=== PATIENT | female | born 2000 | race Caucasian/White ===

== ENCOUNTER 2020-04-05 14:02 | Outpatient (CLI) | payer BC, SELFPAY ==
[2020-04-05 14:15] LABS: Basophils Percent Auto 0.7 % (0.2-1.2); Eosinophils Absolute Auto 0.1 K/mm3 (0-0.3); Eosinophils Percent Auto 1.8 % (0-4.4); Hematocrit 47.2 % (37.0-47.0); Hemoglobin 16.4 g/dL (12.0-15.0); Immature Granulocyte Absolute 0.03 K/mm3 (0.00-0.031); Immature Granulocyte Percent A 0.5 % (0-0.5); Lymphocytes Absolute Auto 2.35 K/mm3 (0.9-3.2); Lymphocytes Percent Auto 38.8 % (18.3-44.2); Mean Corpuscular HGB Conc 34.7 g/dl (32-36); Mean Corpuscular Hemoglobin 30.7 pg (26-34); Mean Corpuscular Volume 88.2 fl (80-100); Mean Platelet Volume 9.5 fl (7.4-10.4); Monocytes Absolute Auto 0.4 K/mm3 (0.1-0.6); Monocytes Percent Auto 6.4 % (2.6-8.5); Neutrophils Absolute Auto 3.1 K/mm3 (1.3-6.7); Neutrophils Percent Auto 51.8 % (45.5-73.1); Platelet Count Result 192 k/mm3 (150-375); Red Blood Count 5.35 M/mm3 (4.2-5.4); White Blood Count 6.1 K/mm3 (4.5-10.0)
== END 2020-04-05 14:03 | disposition home or self-care (01) ==
LOC: ANHLAB 14:04
PROVIDERS: Visit Provider Internal Medicine Hematology & Oncology
DX: F64.9 Gender identity disorder, unspecified (principal)
CPT/HCPCS: 36415; 85025

== ENCOUNTER 2022-02-11 13:02 | Outpatient (CLI) | payer BC, SELFPAY ==
--- NOTE | ~2022-02-11 | NM_ITS ---
EXAMINATION: NM hepatobiliary w pharm DATE: 02/11/2022 15:50 INDICATION: Right upper quadrant abdominal pain. COMPARISON: CT abdomen and pelvis dated 05/13/2019 TECHNIQUE: 6.0 mCi Tc-99m mebrofenin (Choletec) was administered intravenously. Scintigraphic images of the abdomen were obtained for one hour. 1.6 mcg sincalide (Kinevac) was administered by slow intr avenous infusion, and imaging was continued for 30 minutes. Gallbladder ejection fraction was calcula kaela by the technologist. FINDINGS: There is normal clearance of radiotracer from the blood pool. Photopenic defect over the dome of the liver with location and configuration suggesting the secondary to an overlying breast implant. There is homogeneous tracer uptake by the liver. Activity progresses to the gallbladder and bowel. The gal lbladder ejection fraction (GBEF) is 7% (normal 10-90%, but most patient with gallbladder dysfunction have GBEF < 35% which does overlap with the normal range). IMPRESSION: 1. Significantly decreased gallbladder ejection fraction of 7% consistent with gallbladder dysfuncti on or chronic cholecystitis in the appropriate clinical setting. Reviewed, dictated and finalized at location B. IMPRESSION: 1. Significantly decreased gallbladder ejection fraction of 7% consistent with gallbladder dysfunction or chronic cholecystitis in the appropriate clinical s etting.
== END 2022-02-11 13:03 | disposition home or self-care (01) ==
LOC: CHSIMG 13:03
PROVIDERS: PCP Nurse Practitioner Family; Visit Provider Nurse Practitioner Family
DX: R10.11 Right upper quadrant pain (principal)
CPT/HCPCS: 78227; A9537; J2805

== ENCOUNTER → 2022-02-27 13:40 | Outpatient (CLI) | payer BC, SELFPAY ==
--- NOTE | ~2022-02-27 | US_ITS ---
US abdomen limited INDICATION: Abnormal HIDA scan. PROCEDURE: Realtime right upper abdominal ultrasound. COMPARISON: No prior studies for comparison. FINDINGS: The pancreas is normal without focal mass or pancreatic ductal dilation. Liver echotexture is normal without focal mass or intrahepatic biliary dilatation. There is normal directional flow i n the portal vein. The gallbladder is normal without stones, gallbladder wall thickening or pericholecystic fluid. Comm on bile duct measures 6 mm. No sonographic Joseph's sign. IMPRESSION: 1: Normal limited abdominal ultrasound. Reviewed, dictated and finalized at location A.
== END ==
PROVIDERS: PCP Surgery; Visit Provider Surgery
DX: K82.8 Other specified diseases of gallbladder (principal)
CPT/HCPCS: 76705

== ENCOUNTER 2022-03-12 00:18 | Day surgery (SDC) | payer BC, SELFPAY ==
[2022-03-07 11:00] VITALS: BMI 32.3
--- NOTE | 2022-03-07 11:48 | PC.NURSE ---
Report to the Outpatient Waiting Room, entrance under the green pavilion located off [facility], at time 10:30 on date 03/12/22. OR Time: 12:30. - You and your visitor will be asked a series of questions to screen for COVID 19 for your protection. - Only one visitor is allowed at this time. - The patient visitor is requested to leave or wait in car when not with patient. - A mask is required within the hospital. Patients may have clear liquids (water, carbonated beverages, clear teas, apple juice) until 3 hours prior to surgery (9:30) with a maximum of 20 ounces. - No food from midnight until time of surgery Take the following medications with a SIP of water the morning of surgery: BUSPIRONE, VENLAFAXINE Medications to discontinue per physician: N/A Date to take last dose: N/A Please no make-up, nail maori, hairspray, perfume, deodorant, or body powder the day of surgery. No jewelry (including any body piercings) or valuables the day of surgery, leave them at home. Please take a shower or bath the night before, or the morning of, surgery with an antibacterial soap. Wear comfortable, loose fitting clothing. HIBICLENS SHOWER - Jewelry must be removed prior to entering the operating room. Rings and piercings that are not removed may be cut off. - The hospital will not accept responsibility for valuables. - Please leave all valuables, including medications, at home the day of surgery. If you are going home after surgery, a licensed passenger coach driver must drive you home. - NO public transportation without another adult. - We recommend that an adult stay with you for 24 hours following discharge. - We also recommend that you do not drive, make important decision, drink alcoholic beverages, or take any drugs that were not prescribed by your health care provider for at least 24 hours after your discharge time. Follow any additional instructions given to you from your surgeon. If you or anyone in your household have experienced Covid symptoms in the past week, please notify your surgeon or the nurse liaison at the phone number below for possible testing. Telephone instructions given to PT - MARY LOU OWENS and asked if any additional questions and then verbalized understanding. Patient advised to call surgeon office or pre surgery nurse liaison [phone] if any additional questions.
[2022-03-12] VITALS (9 sets, daily range): BP systolic 116–136; BP diastolic 54–88; PULSE 50–99; RESP 9–23; TEMP 35.9–36.4; O2SAT 98–100
--- NOTE | 2022-03-12 10:04 | WPDANESEPPF ---
Anes - Initial Pre Proc Eval Procedure: Operation Date: 03/12/22 12:30 Proposed Procedures p Laparoscopic Cholecystectomy, Possible Open - Elias Braga DO Date/Time: 03/12/22 10:04 Surgeon: Elias Braga DO Pre Op Diagnosis: Biliary Dyskinesia Patient Data Age: 21 Gender: F Height: 1.63 m Weight: 85.28 kg Allergies Allergy/AdvReac Type Severity Reaction Status Date / Time No Known Allergies Allergy Verified 03/07/22 10:58 Home Medications Medication Instructions Recorded Confirmed Type fluticasone propionate 50 See Rx Instructions .Route 09/28/21 03/07/22 Rx mcg/actuation nasal .COMPLEX #16 mL spray,suspension venlafaxine 75 mg capsule,extended See Rx Instructions .Route 11/15/21 03/07/22 Rx release 24 hr .COMPLEX #30 caps quetiapine 25 mg tablet (Seroquel) 25 mg PO QHS #90 tabs 01/14/22 03/07/22 Rx testosterone cypionate 200 mg/mL 200 mg subcut .COMPLEX 02/05/22 03/07/22 History intramuscular oil omeprazole 20 mg capsule,delayed See Rx Instructions .Route 03/01/22 03/07/22 Rx release .COMPLEX #90 caps buspirone 15 mg tablet 15 mg PO BID 90 days #180 tabs 03/07/22 03/07/22 Rx pseudoephedrine HCl 60 mg tablet 60 mg PO Q4-6H PRN Congestion 03/07/22 03/07/22 History Patient hx anesthesia problems: none Family hx anesthesia problems: none Results Review: All pre-operative results and documents have been reviewed as part of the pre-operative evaluation. [facility] Past Medical History Medical History Anxiety Arthritis Constipation Depression Diarrhea Flat foot [pes planus] (acquired), left foot (02/11/19) Headache Maxillary sinusitis Nausea & vomiting Nicotine dependence Pain, foot, left, chronic Shortness of breath (01/27/19) Stomach pain Suicide attempt Syncope Surgical History Surgical History Coalition, talocalcaneal (02/11/19) No history of previous surgery Family History Family History Mother Hypertension Father Healthy adult Other Diabetes mellitus Family history of arthritis Family history of neuropathy Social History Social History Years smoked: 5 Smoking status: Current every day smoker Tobacco type: e-cigarettes/vaping Additional smoking assessment comments: Smokes 1-5 cigarettes per week Alcohol intake: current Alcohol use details: EVERY OTHER MONTH Substance use: current Substance use type: marijuana Additional living arrangements comments: Single. No children. Additional occupation/education comments: Works at [employer] Gender identity (if verbalized by the patient): Male Spiritual care concerns: No Anes - Eval Final PreProcedure Day of Procedure 03/12/22 10:04 Patient weight: obese Heart: regular rate and rhythm Lungs: decreased breath sounds Airway: Mallampati scale class 1 Neurological: alert and oriented Last oral intake: >/= 8 hours ASA classification: III Emergent: no Anesthetic plan: proceed Anesthesia type and monitoring: general ETT and standard monitoring Results Review: All pre-operative results and documents have been reviewed as part of the pre-operative evaluation. Informed Consent: The patient's anesthetic plan and its attendant risks and benefits were discussed with the patient/family/POA. Questions were solicited and answers provided to the satisfaction of the patient/family/POA.
[2022-03-12] MEDS: ACETAMINOPHEN 500 MG TABLET 1000 MG PO (10:48)
[2022-03-12] MEDS: KETOROLAC 15 MG/ML VIAL (*BKC) IV PUSH (10:52)
[2022-03-12] MEDS: LACTATED RINGERS 1,000 ML 30 ML IV CONT ×2 (11:20→13:21)
--- NOTE | 2022-03-12 11:52 | WPDHPUPDATE1 ---
History and Physical Update Update Date/Time: 03/12/22 11:52 History and Physical has been reviewed, including an updated exam of the patient. There are NO changes in the patient's condition. Risks, benefits, and alternatives have been discussed and questions answered. Patient agrees to proceed with procedure.
[2022-03-12 11:53] LABS: Amylase 55 U/L (30-110)
[2022-03-12 12:02] LABS: Alanine Aminotransferase 26 U/L (6-35); Albumin Level 4.6 g/dL (3.5-5.1); Alkaline Phosphatase 69 U/L (38-126); Aspartate Amino Transferase 34 U/L (14-36); Bilirubin,Total 0.6 mg/dL (0.2-1.3); Lipase 118 U/L (23-300)
[2022-03-12] MEDS: ceFAZolin 2 GM/D5W 50 ML 2 GM/50 ML BAG IVPB (12:11)
[2022-03-12] MEDS: BUPIVACAINE/EPINEPHRINE 0.25% 50 ML VIAL 30 ML INFILTRATE (12:16)
--- NOTE | 2022-03-12 13:10 | W.PM.PROC2 ---
Procedure Note - Detailed Date of Procedure 03/12/22 Pre-op Diagnosis Biliary Dyskinesia Post-op Diagnosis Same Procedure Performed Laparoscopic Cholecystectomy Surgeon Elias Braga, DO Anesthesia General and Local (0.5% bupivacaine) Indications This is a 21-year-old who presents with right upper quadrant pain for the past 2 months. He was noting some diarrhea and right upper quadrant pain. Pain was not associated with any particular foods, but eating did occasionally make the pain worse. An outside facility CT was normal. HIDA scan showed decreased gallbladder ejection fraction at 7%. A right upper quadrant ultrasound was also obtained and this showed normal appearance of the gallbladder without gallstones. Liver enzymes were also normal preoperatively. Discussions were made with the patient about treatment options and decision was made to proceed with laparoscopic cholecystectomy, possible open. Findings Laparoscopic cholecystectomy was performed. The gallbladder appeared grossly normal and cystic duct appeared normal in size. No other intra-abdominal abnormalities were noted. Sheath the gallbladder was removed and sent to the lab for pathology. Description of Procedure Procedure as well as risks, benefits, and alternatives were discussed with patient. Written consent was obtained and placed in chart prior to procedure. The patient was brought back to surgical suite. Patient was placed in supine position on operating table. Time-out was done to confirm patient and procedure. Patient was then intubated by the anesthesia department. Abdomen was prepped and draped in sterile fashion using chlorhexidine prep. 0.5% bupivacaine with epinephrine was infiltrated at each site of incision. A 5 millimeter incision was made near the umbilicus, and a 5 millimeter Optiview trocar was advanced through the abdominal layers under direct visualization. Once inside the abdominal cavity, carbon dioxide was insufflated to create a pneumoperitoneum. The camera was inserted and the abdomen was inspected. No immediate abnormalities were identified. The patient was placed in reverse Trendelenburg position and rotated slightly to the left. An 11 millimeter incision was made in the subxiphoid region, and an 11 millimeter trocar was inserted under direct visualization. Two 5 millimeter incisions were made in the right upper quadrant, and two 5 millimeter trocars were inserted under direct visualization. The gallbladder was identified and grasped at the fundus and retracted superiorly. It was then grasped at the infundibulum retracted laterally. Careful dissection around the neck of the gallbladder was performed using blunt dissection with a [place] grasper and hook electrocautery. The cystic duct was identified, and a window was created behind it. The cystic artery was also identified and a window was created behind it. The critical view of safety was identified, visualizing the cystic duct running directly into the neck of the gallbladder, and the cystic artery running directly into the wall of the gallbladder. A 5 millimeter clip learning disabilities specialist was then used to place 2 clips proximally and 1 clip distally on both the cystic duct and cystic artery. They were then both transected using endoscopic scissors. Once safely away from the elana hepatitis, the gallbladder was dissected free from the liver bed using hook electrocautery. Hemostasis was achieved along the way. The gallbladder was removed completely and then removed through the subxiphoid port. The liver bed was then inspected. Hemostasis appeared adequate, and our clips appeared secure. The area was gently irrigated with sterile saline. No other abnormalities were seen. The patient was flattened out in bed, and 1 final inspection was made around the abdominal cavity. The subxiphoid port was removed, and a Marco Judith cone was used to approximate the fascia with an 0-Vicryl simple interrupted suture. The
[2022-03-12] MEDS: ONDANSETRON INJ 4 MG/2 ML VIAL IV PUSH (14:07)
[2022-03-12] MEDS: oxyCODONE HCL (*CRX) 5 MG TAB IR PO (14:56)
== END 2022-03-12 15:20 | disposition home or self-care (01) ==
PROVIDERS: PCP Nurse Practitioner Family; Visit Provider Surgery
PROC: 0FT44ZZ Resection of Gallbladder, Percutaneous Endoscopic Approach (ICD-10-PCS; CPT 47562; principal; 2022-03-12 12:30)
DX: K81.1 Chronic cholecystitis (principal); R19.7 Diarrhea, unspecified; R10.11 Right upper quadrant pain; F41.9 Anxiety disorder, unspecified; M19.90 Unspecified osteoarthritis, unspecified site; F32.A Depression, unspecified; F12.90 Cannabis use, unspecified, uncomplicated; F17.210 Nicotine dependence, cigarettes, uncomplicated; M21.40 Flat foot [pes planus] (acquired), unspecified foot; F17.290 Nicotine dependence, other tobacco product, uncomplicated
CPT/HCPCS: 47562; 36415; 80076; 82150; 83690; 86850; 86900; 86901; 88304; A9270; J0690; J1100; J1885; J2250; J2405; J2704; J2710; J3010; J7030; J7120

== ENCOUNTER 2023-11-22 11:40 | Emergency (ER) | payer BC, SELFPAY ==
[2023-11-22 12:00] VITALS: BP 127/78; PULSE 105; RESP 18; TEMP 37.3; O2SAT 99
--- NOTE | 2023-11-22 12:56 | ED.URI ---
HPI - URI/Sore Throat General Chief Complaint: Upper Respiratory Infection Stated Complaint: sorethroat Time Seen by Provider: 11/22/23 12:52 Source: patient, RN notes reviewed and old records reviewed Mode of arrival: ambulatory Limitations: no limitations History of Present Illness HPI Narrative: 23-year-old male presents to the [facility] with his mother with complaints of sore throat, fevers as high as 101.3, headache, right ear pain, sinus pain and pressure as well as body aches. Related Data Home Medications Medication Instructions Recorded Confirmed testosterone cypionate 200 mg/mL 200 mg subcut .COMPLEX 02/05/22 11/22/23 intramuscular oil Allergies Allergy/AdvReac Type Severity Reaction Status Date / Time No Known Allergies Allergy Verified 11/22/23 12:17 Review of Systems Review of Systems: All systems reviewed & are unremarkable except as noted in HPI and below Constitutional: Constitutional: Reports no additional constitutional complaints Eyes: Eyes: Reports no additional eye complaints ENT: Reports as per HPI and Reports sore throat Cardiovascular: Cardiovascular: Reports no additional cardiovascular complaints, Denies chest pain and Denies dyspnea Respiratory: Respiratory: Reports no additional respiratory complaints, Denies chest congestion, Denies cough and Denies dyspnea Gastrointestinal: Gastrointestinal: Reports no additional gastrointestinal complaints, Denies abdominal pain, Denies nausea and Denies vomiting Musculoskeletal: Musculoskeletal: Reports no additional musculoskeletal complaints Integumentary/Breasts: Skin/Breast: Reports system reviewed and no additional complaints, except as docu Neurologic: Reports system reviewed and no additional complaints, except as documented Psychiatric: Psychiatric: Reports no additional psychiatric complaints Allergic/Immunologic: Allergic/Immunologic: Reports no additional allergic/immunologic complaints [facility] Past Medical History Medical History Anxiety Arthritis Constipation Depression Diarrhea Flat foot [pes planus] (acquired), left foot (02/11/19) Headache Maxillary sinusitis Nausea & vomiting Nicotine dependence Pain, foot, left, chronic Shortness of breath (01/27/19) Stomach pain Suicide attempt Syncope Surgical History Surgical History Coalition, talocalcaneal (02/11/19) Hx laparoscopic cholecystectomy 03/12/22 No history of previous surgery Family History Family History Mother Hypertension Father Healthy adult Other Diabetes mellitus Family history of arthritis Family history of neuropathy Social History Social History Years smoked: 5 Smoking status: Current every day smoker Tobacco type: e-cigarettes/vaping Additional smoking assessment comments: Smokes 1-5 cigarettes per week Alcohol intake: current Alcohol use details: EVERY OTHER MONTH Substance use: current Substance use type: marijuana Living arrangements: with family Additional living arrangements comments: Single. No children. Occupation/Education: occupation Additional occupation/education comments: Works at [employer] Gender identity (if verbalized by the patient): Male Spiritual care concerns: No Comments At the time of my signature, I reviewed and agree with the nursing past medical, surgical, social, and family history. There is no relevant family history pertinent to the patient complaint. Exam Const: General: cooperative, healthy appearing, comfortable, no acute distress, well developed, alert and well nourished Nutritional Appearance: well nourished Orientation/consciousness: patient oriented x3 Limitations: no limitations HENMT: Head: normal to inspection Ears: hearing grossly normal
== END 2023-11-22 13:12 | disposition home or self-care (01) ==
PROVIDERS: Emergency Provider Nurse Practitioner
DX: J02.0 Streptococcal pharyngitis (principal); F17.210 Nicotine dependence, cigarettes, uncomplicated; F17.290 Nicotine dependence, other tobacco product, uncomplicated
CPT/HCPCS: 87880; 99213; G0463

== ENCOUNTER 2024-02-28 14:22 | Emergency (ER) | payer BC, SELFPAY ==
[2024-02-28 14:31] VITALS: BP 123/70; PULSE 120; RESP 18; TEMP 36.6; O2SAT 98
--- NOTE | 2024-02-28 14:34 | ED.URI ---
HPI - URI/Sore Throat General Chief Complaint: Upper Respiratory Infection Stated Complaint: Cold symptoms Source: patient and RN notes reviewed Mode of arrival: ambulatory Limitations: no limitations History of Present Illness HPI Narrative: 23 y/o male (transitioned) presented for c/o headache, body aches, sinus pressure/congestion, cough, fever/chills. Onset this morning. Reports temp 99.8. Mother tested positive for covid 4 days ago. Took ibuprofen. Denies sob, wheezing, n/v/d. MD elicited complaint: cough Related Data Home Medications Medication Instructions Recorded Confirmed testosterone cypionate 200 mg/mL 200 mg subcut .COMPLEX 02/05/22 02/28/24 intramuscular oil Allergies Allergy/AdvReac Type Severity Reaction Status Date / Time No Known Allergies Allergy Verified 02/28/24 14:35 Review of Systems Review of Systems: CONSTITUTIONAL: Endorses malaise, chills, sweats, fever EYES: Denies visual changes, redness, or discharge ENT: Reports rhinorrhea, congestion, sinus pain, sore throat CARDIOVASCULAR: Denies chest pain, palpitations, edema RESPIRATORY: Reports cough, post nasal drainage. Denies dyspnea GASTROINTESTINAL: Denies abdominal pain, nausea, vomiting, diarrhea SKIN: Denies rash or itching MUSCULOSKELETAL: Endorses myalgia NEUROLOGIC: endorses headache PMFSH Past Medical History Medical History (Updated 02/28/24 @ 14:58 by Elvie Cerna APRN) Anxiety Arthritis Constipation Depression Diarrhea Flat foot [pes planus] (acquired), left foot (02/11/19) Headache Maxillary sinusitis Nausea & vomiting Nicotine dependence Pain, foot, left, chronic Shortness of breath (01/27/19) Stomach pain Suicide attempt Syncope Surgical History Surgical History (Updated 02/28/24 @ 14:44 by Elvie Cerna APRN) Coalition, talocalcaneal (02/11/19) History of bilateral mastectomy Hx laparoscopic cholecystectomy 03/12/22 No history of previous surgery Family History Family History Mother Hypertension Father Healthy adult Other Diabetes mellitus Family history of arthritis Family history of neuropathy Social History Social History Years smoked: 5 Smoking status: Current every day smoker Tobacco type: e-cigarettes/vaping Additional smoking assessment comments: Smokes 1-5 cigarettes per week Alcohol intake: current Alcohol use details: EVERY OTHER MONTH Substance use: current Substance use type: marijuana Living arrangements: with family Additional living arrangements comments: Single. No children. Occupation/Education: occupation Additional occupation/education comments: Works at [employer] Gender identity (if verbalized by the patient): Male Spiritual care concerns: No Exam Narrative: GENERAL: well-appearing EYES: PERRLA, conjunctivae clear ENT: Mucous membranes moist. TM pearly kothari with dull light reflex bilaterally; no tragal tenderness. Oropharynx erythematous without lesions or exudate, no drooling, no hoarseness, no trismus, uvula midline. No tripod positioning, muffled voice, soft palate or pharyngeal wall bulging NECK: Supple. No lymphadenopathy CHEST: Clear to auscultation, breath sounds equal. SKIN: Warm, dry, no rash. NEURO: Alert and oriented x3. PSYCH: Normal mood and affect Course Course Emergency Course: Patient is aware of diagnosis, understands and agrees to treatment plan. Anticipatory guidance given. Patient agrees to follow-up as directed and is aware of reasons to seek care at the emergency department. Portions of this record may have been created with voice recognition software Level of Care: Express Care Visit Vital Signs Vital signs: Vital Signs Temperature 97.9 F 02/28/24 14:31 Pulse Rate 120 H 02/28/24 14:31 Respiratory Rate 18 02/28/24 14:31 Blood Pressure 123/70 02/28/24 14:
[2024-02-28 15:00] LABS: EDSTREPNEGPOS1 Presumptive Negative
== END 2024-02-28 15:03 | disposition home or self-care (01) ==
PROVIDERS: Emergency Provider Nurse Practitioner Family; Referring Provider Emergency Medicine
DX: B34.9 Viral infection, unspecified (principal); Z20.822 Contact with and (suspected) exposure to COVID-19; F17.290 Nicotine dependence, other tobacco product, uncomplicated; F17.210 Nicotine dependence, cigarettes, uncomplicated; M19.90 Unspecified osteoarthritis, unspecified site; Z90.13 Acquired absence of bilateral breasts and nipples
CPT/HCPCS: 87081; 87426; 87880; 99213; G0463

== ENCOUNTER 2024-05-27 19:03 | Emergency (ER) | payer BC, SELFPAY ==
--- NOTE | ~2024-05-27 | XR_ITS ---
EXAMINATION: XR wrist LT min 3V DATE: 05/27/2024 19:29 INDICATION: Left wrist injury and pain. TECHNIQUE: 4 views of left wrist were obtained. COMPARISON: None. FINDINGS: Bone alignment is normal. There is an avulsion fracture of dorsal pole of triquetrum. Joint spaces are normal. IMPRESSION: 1. Avulsion fracture of dorsal pole of triquetrum. Reviewed, dictated and finalized at location A.
[2024-05-27 19:13] VITALS: BP 120/69; PULSE 77; RESP 16; TEMP 36.3; O2SAT 99
--- NOTE | 2024-05-27 19:14 | ED.UPPEXIN ---
HPI - Extremity Injury (Upper) General Chief Complaint: Extremity Problem,Nontraumatic Stated Complaint: LT Wrist Pain Time Seen by Provider: 05/27/24 19:14 Source: patient Mode of arrival: ambulatory Limitations: no limitations History of Present Illness HPI narrative: Patient is a 24-year-old male who presents with left wrist pain after falling while roller-skating tonight have weeks ago. Patient has used Jarocho wrap, ice, Tylenol and ibuprofen but pain is still persistent with typing and playing video games. Patient still able the and wrist in all directions. Denies any numbness or tingling to hand fingers. Related Data Home Medications Medication Instructions Recorded Confirmed testosterone cypionate 200 mg/mL 200 mg subcut .COMPLEX 02/05/22 05/27/24 intramuscular oil Allergies Allergy/AdvReac Type Severity Reaction Status Date / Time No Known Allergies Allergy Verified 05/27/24 19:28 Review of Systems Review of Systems: All systems reviewed & are unremarkable except as noted in HPI and below Constitutional: Constitutional: Denies body ache(s), Denies chills, Denies fatigue, Denies fever(s), Denies headache(s), Denies malaise and Denies weakness Eyes: Eyes: Denies blurry vision, Denies irritation and Denies loss of vision ENT: Denies otalgia, Denies headache(s), Denies nasal discharge, Denies sinus pain and Denies sore throat Cardiovascular: Cardiovascular: Denies chest pain, Denies irregular heart rhythm and Denies dyspnea Respiratory: Respiratory: Denies dyspnea Gastrointestinal: Gastrointestinal: Denies abdominal pain, Denies melena, Denies hematochezia, Denies diarrhea, Denies nausea and Denies vomiting Musculoskeletal: Musculoskeletal: Denies back pain, Denies myalgias and Reports arthralgias Integumentary/Breasts: Skin/Breast: Denies pruritus and Denies rash Neurologic: Denies headache(s), Denies loss of vision and Denies weakness Psychiatric: Psychiatric: Reports no additional psychiatric complaints Endocrine: Endocrine: Denies fatigue PMFSH Past Medical History Medical History Anxiety Arthritis Constipation Depression Diarrhea Flat foot [pes planus] (acquired), left foot (02/11/19) Headache Maxillary sinusitis Nausea & vomiting Nicotine dependence Pain, foot, left, chronic Shortness of breath (01/27/19) Stomach pain Suicide attempt Syncope Surgical History Surgical History luis Centeno (02/11/19) History of bilateral mastectomy Hx laparoscopic cholecystectomy 03/12/22 No history of previous surgery Family History Family History Mother Hypertension Father Healthy adult Other Diabetes mellitus Family history of arthritis Family history of neuropathy Social History Social History Years smoked: 5 Smoking status: Current every day smoker Tobacco type: e-cigarettes/vaping Additional smoking assessment comments: Smokes 1-5 cigarettes per week Alcohol intake: current Alcohol use details: EVERY OTHER MONTH Substance use: current Substance use type: marijuana Living arrangements: with family Additional living arrangements comments: Single. No children. Occupation/Education: occupation Additional occupation/education comments: Works at [employer] Gender identity (if verbalized by the patient): Male Spiritual care concerns: No Comments At time of signature, agree with nursing past medical, surgical, social and family history. There is no relevant family history pertinent to the presenting complaint. Exam Const: General: cooperative, healthy appearing, comfortable, no acute distress and well nourished Nutritional Appearance: well nourished Orientation/consciousness: patient oriented x3 Limitations: no limit
== END 2024-05-27 20:03 | disposition home or self-care (01) ==
PROVIDERS: Emergency Provider Nurse Practitioner Family
DX: S62.112A Displaced fracture of triquetrum [cuneiform] bone, left wrist, initial encounter for closed fracture (principal); V00.121A Fall from non-in-line roller-skates, initial encounter; Y93.51 Activity, roller skating (inline) and skateboarding; M19.90 Unspecified osteoarthritis, unspecified site; Z90.13 Acquired absence of bilateral breasts and nipples; F17.210 Nicotine dependence, cigarettes, uncomplicated; F17.290 Nicotine dependence, other tobacco product, uncomplicated
CPT/HCPCS: 29125; 73110; 99214; A4565; G0463

== ENCOUNTER 2024-06-17 15:40 | Emergency (ER) | payer BC, SELFPAY ==
--- NOTE | 2024-06-17 15:48 | ED.URI ---
HPI - URI/Sore Throat General Chief Complaint: Upper Respiratory Infection Stated Complaint: swollen throat Time Seen by Provider: 06/17/24 15:57 Source: patient, RN notes reviewed and old records reviewed Mode of arrival: ambulatory Limitations: no limitations History of Present Illness HPI Narrative: 24-year-old male presents to the [facility] with a sore throat, states it feels like it is swollen. Symptoms started yesterday. Onset (ago): day(s) (1) Related Data Home Medications Medication Instructions Recorded Confirmed testosterone cypionate 200 mg/mL 200 mg subcut .COMPLEX 02/05/22 05/27/24 intramuscular oil Allergies Allergy/AdvReac Type Severity Reaction Status Date / Time No Known Allergies Allergy Verified 05/27/24 19:28 Review of Systems Review of Systems: All systems reviewed & are unremarkable except as noted in HPI and below Constitutional: Constitutional: Reports no additional constitutional complaints ENT: Reports as per HPI and Reports sore throat Cardiovascular: Cardiovascular: Reports no additional cardiovascular complaints, Denies chest pain and Denies dyspnea Respiratory: Respiratory: Reports no additional respiratory complaints, Denies chest congestion, Denies cough and Denies dyspnea Gastrointestinal: Gastrointestinal: Reports no additional gastrointestinal complaints, Denies abdominal pain, Denies nausea and Denies vomiting Musculoskeletal: Musculoskeletal: Reports no additional musculoskeletal complaints Integumentary/Breasts: Skin/Breast: Reports system reviewed and no additional complaints, except as docu PMFSH Past Medical History Medical History Anxiety Arthritis Constipation Depression Diarrhea Flat foot [pes planus] (acquired), left foot (02/11/19) Headache Maxillary sinusitis Nausea & vomiting Nicotine dependence Pain, foot, left, chronic Shortness of breath (01/27/19) Stomach pain Suicide attempt Syncope Surgical History Surgical History [facility], talocalcaneal (02/11/19) History of bilateral mastectomy Hx laparoscopic cholecystectomy 03/12/22 No history of previous surgery Family History Family History Mother Hypertension Father Healthy adult Other Diabetes mellitus Family history of arthritis Family history of neuropathy Social History Social History Years smoked: 5 Smoking status: Current every day smoker Tobacco type: e-cigarettes/vaping Additional smoking assessment comments: Smokes 1-5 cigarettes per week Alcohol intake: current Alcohol use details: EVERY OTHER MONTH Substance use: current Substance use type: marijuana Living arrangements: with family Additional living arrangements comments: Single. No children. Occupation/Education: occupation Additional occupation/education comments: Works at [employer] Gender identity (if verbalized by the patient): Male Spiritual care concerns: No Comments At the time of my signature, I reviewed and agree with the nursing past medical, surgical, social, and family history. There is no relevant family history pertinent to the patient complaint. Exam Const: General: cooperative, healthy appearing, comfortable, no acute distress, well developed, alert and well nourished Nutritional Appearance: well nourished Orientation/consciousness: patient oriented x3 Limitations: no limitations HENMT: Head: normal to inspection Ears: hearing grossly normal bilaterally, external ears normal, TM's normal bilaterally, EAC's normal, mastoids normal and no periauricular adenopathy Face/Nose/Sinus: Normal external nose present, normal facial exam and face symmetric Face and sinus: normal facial exam and face symmetric Mouth: Yes Normal oral and palatal mucosa present, Yes lip normal and Yes tongue normal Throat: uvula midline, abnormal tonsil on the right crypts (Tonsil stone noted); no erythema, no exudates and no hypertrophy and no uvular edema Eyes: General: appearance normal, both eyes and all related structures Alignment and Position: alignment normal Periorbital: periorbital findings normal Neck: Neck: normal visual inspection, full ROM, no lymphadenopathy and no meningeal signs Chest: Chest palpation & inspection: normal inspection of the chest Resp: Effort & Inspection: normal respiratory effort and able to speak in complete sentences Auscultation: clear to auscultation bilaterally, no crackles, no rales, no rhonchi and no wheezes Cardio: Rate: regular rate Skin: General skin exam: normal color and no rashes or lesions noted Lesions: no lesions Rashes: no rashes Wounds: no wounds Neuro: General: patient oriented x3, gait normal, tone normal, moves all extremities and no meningeal signs Cognition (Neuro): normal cognition Speech: normal speech Gait exam (Neuro): Normal gait present Extrem: General: normal to inspection, full ROM, capillary refill normal and normal gait Psych: Appearance: grossly normal and well kempt Mental Status: mental status grossly normal Speech and movement: Normal speech and movement present and Clear speech present Affect: normal affect Attitude: cooperative Course Course Level of Care: Express Care Visit Vital Signs Vital signs: Vital Signs Temperature 98.8 F 06/17/24 15:55 Pulse Rate 107 H 06/17/24 15:55 Respiratory Rate 16 06/17/24 15:55 Blood Pressure 115/71 06/17/24 15:55 Pulse Oximetry 98 06/17/24 15:55 Oxygen Delivery Room Air 06/17/24 15:55 Temperature 98.8 F 06/17/24 15:55 Pulse Rate 107 H 06/17/24 15:55 Respiratory Rate 16 06/17/24 15:55 Blood Pressure 115/71 06/17/24 15:55 Pulse Oximetry 98 06/17/24 15:55 Oxygen Delivery Room Air 06/17/24 15:55 Reviewed MDM - URI/Sore Throat MDM Narrative Medical decision making narrative: Patient sitting comfortably in exam room. Nontoxic, vitals stable. Patient in no acute distress Presents with sore throat, his feeling of something swollen in his throat. Patient is noted to have a tonsillar stone right tonsil. Strep and mono are negative Patient appropriate for outpatient treatment and follow-up Discharge instructions reviewed with patient, as well as provided in writing per nursing staff. The instructions also include specific and strict return/GO TO THE ER as well as f/u information. All questions have been answered, and the patient deny any further questions with discharge and discharge plan. Some parts of this dictation were generated by voice recognition software and may contain typographical and/or grammatical inaccuracies. Differential Diagnosis Differential diagnosis: Likely upper respiratory infection, otitis media, sinusitis, viral infection and pharyngitis Lab Data Labs: Lab Results 06/17/24 06/17/24 Range/Units 16:00 16:13 POC Monoscreen Negative (Positive) POC Grp A Strep Screen Negative (Negative) Reviewed Critical Care Time Critical Care Time Critical Care Time: No Discharge Plan Discharge Clinical Impression: Tonsil stone Patient Disposition: Home, Self-Care Condition: Stable Instructions: Antibiotic Form, Pharyngitis (ED) Additional Instructions: Your mono and strep test were negative in clinic today You can take steps to prevent tonsil stones: ? [place] and floss regularly. Make sure to brush the front and back of your tongue, too. ? Quit [email or web address]-[email or web address]-pkudnax. ? Gargle with salt water after eating. ? Use a water pick to clean your mouth and help dislodge any tonsil stones. ? Stay hydrated by drinking plenty of water. If you have tonsil stones, these at-home remedies can help: ? A warm saltwater gargle helps with swelling and discomfort. Gargling can even help dislodge the stone. Try a gargle of 1 teaspoon salt mixed with 8 ounces of water. ? [place] and floss regularly. Follow-up with primary care provider if symptoms continue For worsening symptoms go directly to the emergency room Patient Language: [place] Prescriptions: No Action testosterone cypionate 200 mg/mL oil 200 mg subcut .COMPLEX Rx Instructions: 200 mg subcutaneously every other week; omeprazole 20 mg capsule,delayed release(DR/EC) 20 mg PO DAILY Qty: 30 0RF quetiapine [Seroquel] 25 mg tablet 25 mg PO QHS Qty: 30 2RF venlafaxine 75 mg capsule,extended release 24hr 75 mg PO DAILY Qty: 30 2RF buspirone 15 mg tablet 15 mg PO BID Qty: 60 2RF Follow-up/Referrals: UNKNOWN,DOCTOR [Non-Staff] - Stand Alone Forms: Work/School Release IP Time of Disposition: 16:11
[2024-06-17 15:55] VITALS: BP 115/71; PULSE 107; RESP 16; TEMP 37.1; O2SAT 98
[2024-06-17 16:03] LABS: EDSTREPNEGPOS1 Negative (Negative)
[2024-06-17 16:15] LABS: EDMONONEGPOS Negative (Positive)
== END 2024-06-17 16:18 | disposition home or self-care (01) ==
PROVIDERS: Emergency Provider Nurse Practitioner
DX: J35.8 Other chronic diseases of tonsils and adenoids (principal); F17.290 Nicotine dependence, other tobacco product, uncomplicated; F17.210 Nicotine dependence, cigarettes, uncomplicated; M19.90 Unspecified osteoarthritis, unspecified site
CPT/HCPCS: 36416; 86308; 87081; 87880; 99213; G0463